=== PATIENT | female | born 1960 | race Caucasian/White ===

== ENCOUNTER 2017-07-03 09:29 | Inpatient (IN) | payer MEDICAID ==
[~2017-07-03] VITALS: Ht 162.6 cm; Wt 73.8 kg
[2017-07-03 10:06] LABS: BASOPHILS % (AUTO) 0.5 % (0-1); EOSINOPHILS # (AUTO) 0.1 X10'3 (0-0.9); EOSINOPHILS % (AUTO) 2.3 % (0-6); HEMATOCRIT 36.1 % (35.0-45.0); HEMOGLOBIN 11.6 g/dl (12.0-16.0); LYMPHOCYTES % (AUTO) 16.7 % (21-51); MEAN CORPUSCULAR HEMOGLOBIN 25.8 PG (27.0-31.0); MEAN CORPUSCULAR VOLUME 80.7 FL (78-98); MEAN PLATELET VOLUME 8.2 FL (7.4-10.4); MONOCYTES # (AUTO) 0.4 X10'3 (0-0.9); MONOCYTES % (AUTO) 5.8 % (2-12); NEUTROPHILS # (AUTO) 4.6 X10'3 (1.8-7.7); NEUTROPHILS % (AUTO) 74.7 % (42-75); PLATELET COUNT 240 X10'3 (140-440); RED BLOOD COUNT 4.48 X10'6 (4.20-5.60); RED CELL DISTRIBUTION WIDTH 20.6 % (11.5-14.5); WHITE BLOOD COUNT 6.2 X10'3 (4.5-11.0)
[2017-07-03 10:16] LABS: INR 1.2 INR; PROTHROMBIN TIME 12.7 SECONDS (9.0-12.0)
[2017-07-03] MEDS ORDERED: iohexol 350MG/ML 100ml bottle IV ONE ×2 (10:19→10:47)
[2017-07-03 10:24] LABS: ALANINE AMINOTRANSFERASE 18 U/L (12-78); ALBUMIN/GLOBULIN RATIO 0.6 (1.1-1.5); ALKALINE PHOSPHATASE 79 IU/L (46-116); ANION GAP 7 (8-16); ASPARTATE AMINO TRANSFERASE 13 U/L (10-37); BILIRUBIN,TOTAL 0.3 MG/DL (0.1-1.0); BLOOD UREA NITROGEN 30 MG/DL (7-18); BUN/CREATININE RATIO 34.1 (6.6-38.0); CALCIUM 7.9 MG/DL (8.5-10.1); CHLORIDE 104 MMOL/L (99-107); CREATININE 0.88 MG/DL (0.40-0.90); GLUCOSE 169 MG/DL (70-104); POTASSIUM 5.3 MMOL/L (3.5-5.1); SODIUM 139 MMOL/L (135-145); TOTAL CARBON DIOXIDE 28.2 MMOL/L (24-32); TOTAL PROTEIN 5.5 G/DL (6.4-8.2); eGFR 66 ML/MIN
[2017-07-03 10:27] LABS: TROPONIN I 0.55 NG/ML (0.0-0.05)
[2017-07-03] MEDS ORDERED: heparin 10,000 units/1 ML INJ IV ONE ×2 (11:20→11:25)
[2017-07-03] MEDS ORDERED: heparin 10,000 units/1 ML INJ IV PRN (11:25)
[2017-07-03] MEDS ORDERED: CARV-50 PO (11:39)
[2017-07-03] MEDS ORDERED: FURO-150 PO (11:39)
[2017-07-03] MEDS ORDERED: SPIR25TA3 PO (11:39)
[2017-07-03] MEDS ORDERED: MAGN400C PO (11:39)
[2017-07-03] MEDS ORDERED: LISI-600 PO (11:39)
[2017-07-03] MEDS ORDERED: METF500T PO (11:39)
[2017-07-03] MEDS ORDERED: OMEP40CA37 PO (11:39)
[2017-07-03 12:29] LABS: URINE AMPHETAMINE SCREEN POSITIVE (Neg); URINE BARBITUATE SCREEN NEGATIVE (Neg); URINE BENZODIAZEPINES SCREEN NEGATIVE (Neg); URINE CANNABINOID SCREEN NEGATIVE (Neg); URINE COCAINE SCREEN NEGATIVE (Neg); URINE METHADONE SCREEN NEGATIVE (Neg); URINE OPIATE SCREEN NEGATIVE (Neg); URINE PHENCYCLIDINE SCREEN NEGATIVE (Neg)
[2017-07-03 14:01] LABS: CLARITY,URINE CLOUDY (Clear); COLOR,URINE YELLOW (Yellow); GLUCOSE, URINE NEGATIVE (Neg); KETONES,URINE NEGATIVE (Neg); LEUKOCYTE ESTERASE ,URINE SMALL (Neg); NITRITES, URINE POSITIVE (Neg); OCCULT BLOOD,URINE SMALL (Neg); PH,URINE 5.5 (4.8-8.0); PROTEIN,URINE 100 mg/dl (Neg)
[2017-07-03 14:02] LABS: UA COLLECTION TYPE FOLEY CATH
[2017-07-03 14:06] LABS: SQUAMOUS EPITHELIAL CELL,UR FEW /LPF (FEW)
[2017-07-03 14:07] LABS: BACTERIA,URINE 2+ /HPF (Neg)
[2017-07-03 14:08] LABS: RBC,URINE 0-2 /HPF (0-2); WBC,URINE 30-50 /HPF (0-4)
[2017-07-03] MEDS ORDERED: magnesium Cl slow-release 64mg tablet PO PRN (15:00)
[2017-07-03] MEDS ORDERED: potassium Cl 40MEQ/NS 500ml 500 ML IV PRN ×2 (15:00)
[2017-07-03] MEDS ORDERED: magnesium 2GM in 50ml NS 50 ML IV PRN (15:00)
[2017-07-03] MEDS ORDERED: magnesium 4gm in 100ml NS 100 ML IV PRN (15:00)
[2017-07-03] MEDS ORDERED: mag hydrox/Alum hydrox/simeth 30ml oral suspension PO PRN (15:00)
[2017-07-03] MEDS ORDERED: potassium Cl 20 mEq SR tablet PO PRN ×2 (15:00)
[2017-07-03] MEDS ORDERED: magnesium hydroxide 30ml (MOM) UD suspension PO PRN (15:00)
[2017-07-03] MEDS ORDERED: acetaminophen 325mg tablet PO PRN (15:00)
[2017-07-03] MEDS ORDERED: ondansetron/PF 4mg/2ml inj IV PRN (15:00)
[2017-07-03] MEDS ORDERED: MESSAGE TO PHARMACY PO ONE (15:15)
[2017-07-03] MEDS ORDERED: dextrose ORAL solution 15 GM/59 ML bottle PO PRN ×2 (15:15)
[2017-07-03] MEDS ORDERED: insulin Lispro (HumaLOG) vial - multi-dose SQ SCH (15:15)
[2017-07-03] MEDS ORDERED: glucagon, human recombinant 1mg kit SUBCUT PRN (15:15)
[2017-07-03] MEDS ORDERED: dextrose 50%-water 50ml dispensing syringe IV PRN ×2 (15:15)
[2017-07-03] MEDS ORDERED: sodium polystyrene sulfonate 15gm/60ml oral suspension PO ONE (16:15)
[2017-07-03 16:25] VITALS: BP 113/79
[2017-07-03 17:15] LABS: TROPONIN I 0.44 NG/ML (0.0-0.05)
[2017-07-03 18:00] VITALS: BP 113/79
[2017-07-03] MEDS: magnesium oxide 400mg tablet PO SCH (19:26)
[2017-07-03] MEDS: furosemide 40mg/4ml inj IV SCH (19:27)
[2017-07-03] MEDS: carVEDilol 12.5mg tablet PO SCH (20:00)
[2017-07-03] MEDS: insulin glargine (Lantus) pen - multi-dose SQ SCH (21:00)
[2017-07-03 22:00] VITALS: BP 102/64
[2017-07-04] VITALS (7 sets, daily range): BP systolic 102–120; BP diastolic 61–89
[2017-07-04 06:26] LABS: BASOPHILS % (AUTO) 0.6 % (0-1); EOSINOPHILS # (AUTO) 0.1 X10'3 (0-0.9); EOSINOPHILS % (AUTO) 1.1 % (0-6); HEMOGLOBIN 11.7 g/dl (12.0-16.0); LYMPHOCYTES # (AUTO) 1.1 X10'3 (1.1-4.8); LYMPHOCYTES % (AUTO) 17.6 % (21-51); MEAN CORPUSCULAR HEMOGLOBIN 25.7 PG (27.0-31.0); MEAN CORPUSCULAR HGB CONC 31.6 % (33.0-36.5); MEAN CORPUSCULAR VOLUME 81.3 FL (78-98); MEAN PLATELET VOLUME 8.6 FL (7.4-10.4); MONOCYTES # (AUTO) 0.5 X10'3 (0-0.9); MONOCYTES % (AUTO) 7.5 % (2-12); NEUTROPHILS # (AUTO) 4.5 X10'3 (1.8-7.7); NEUTROPHILS % (AUTO) 73.2 % (42-75); PLATELET COUNT 229 X10'3 (140-440); RED BLOOD COUNT 4.55 X10'6 (4.20-5.60); RED CELL DISTRIBUTION WIDTH 21.7 % (11.5-14.5); WHITE BLOOD COUNT 6.2 X10'3 (4.5-11.0)
[2017-07-04 06:49] LABS: ANION GAP 9 (8-16); BLOOD UREA NITROGEN 29 MG/DL (7-18); BUN/CREATININE RATIO 33.7 (6.6-38.0); CHLORIDE 102 MMOL/L (99-107); CHOL/HDL RATIO 3.5 (0.00-4.99); CHOLESTEROL 114 MG/DL (0-200); CREATININE 0.86 MG/DL (0.40-0.90); GLUCOSE 121 MG/DL (70-104); HDL CHOLESTEROL 33 MG/DL (35-60); LDL CHOLESTEROL 59 MG/DL (50-100); POTASSIUM 4.6 MMOL/L (3.5-5.1); SODIUM 139 MMOL/L (135-145); TRIGLYCERIDES 140 MG/DL (20-135); eGFR 68 ML/MIN
[2017-07-04 06:52] LABS: MAGNESIUM 0.9 MG/DL (1.5-2.4)
[2017-07-04] MEDS: K and/or MAG REPLACEMENT MC SCH (07:41)
[2017-07-04 07:50] LABS: PLATELET ESTIMATE NORMAL
[2017-07-04] MEDS: spironolactone 25 MG tablet PO SCH (07:50)
[2017-07-04] MEDS: pantoprazole 40mg Tablet.DR PO SCH (07:50)
[2017-07-04] MEDS: furosemide 40mg/4ml inj IV SCH ×2 (07:50→19:57)
[2017-07-04 07:51] LABS: ANISOCYTOSIS 3+; BURR CELLS 1+; ELLIPTOCYTES FEW
[2017-07-04] MEDS: magnesium oxide 400mg tablet PO SCH ×2 (07:51→19:57)
[2017-07-04] MEDS: carVEDilol 12.5mg tablet PO SCH ×2 (07:51→19:57)
[2017-07-04] MEDS: lisinopril 10 MG tablet PO SCH (07:51)
[2017-07-04] MEDS: enoxaparin 40mg/0.4ml syringe SUBCUT SCH (07:52)
[2017-07-04] MEDS: aspirin 81mg tab.chew PO SCH (17:07)
[2017-07-04] MEDS ORDERED: atorvastatin 20mg tablet PO SCH (21:00)
[2017-07-04] MEDS: insulin glargine (Lantus) pen - multi-dose SQ SCH (21:00)
[2017-07-04] MEDS ORDERED: atorvastatin 20mg tablet PO ONE (22:10)
[2017-07-05 03:00] VITALS: BP 97/64
[2017-07-05 06:17] LABS: BASOPHILS % (AUTO) 0.5 % (0-1); EOSINOPHILS # (AUTO) 0.1 X10'3 (0-0.9); EOSINOPHILS % (AUTO) 1.6 % (0-6); HEMATOCRIT 34.3 % (35.0-45.0); LYMPHOCYTES % (AUTO) 17.1 % (21-51); MEAN CORPUSCULAR HEMOGLOBIN 25.5 PG (27.0-31.0); MEAN CORPUSCULAR HGB CONC 32.2 % (33.0-36.5); MEAN CORPUSCULAR VOLUME 79.4 FL (78-98); MEAN PLATELET VOLUME 8.1 FL (7.4-10.4); MONOCYTES # (AUTO) 0.5 X10'3 (0-0.9); MONOCYTES % (AUTO) 7.8 % (2-12); NEUTROPHILS # (AUTO) 4.3 X10'3 (1.8-7.7); PLATELET COUNT 207 X10'3 (140-440); RED BLOOD COUNT 4.32 X10'6 (4.20-5.60); RED CELL DISTRIBUTION WIDTH 21.2 % (11.5-14.5); WHITE BLOOD COUNT 5.9 X10'3 (4.5-11.0)
[2017-07-05 06:27] LABS: ALBUMIN 1.9 G/DL (3.4-5.0); ANION GAP 6 (8-16); BLOOD UREA NITROGEN 29 MG/DL (7-18); BUN/CREATININE RATIO 30.9 (6.6-38.0); CALCIUM 8.3 MG/DL (8.5-10.1); CHLORIDE 102 MMOL/L (99-107); CREATININE 0.94 MG/DL (0.40-0.90); GLUCOSE 164 MG/DL (70-104); MAGNESIUM 1.7 MG/DL (1.5-2.4); SODIUM 138 MMOL/L (135-145); TOTAL CARBON DIOXIDE 30.4 MMOL/L (24-32); eGFR 62 ML/MIN
[2017-07-05] MEDS: K and/or MAG REPLACEMENT MC SCH (06:52)
[2017-07-05 08:39] VITALS: BP 116/81
[2017-07-05] MEDS: furosemide 40mg/4ml inj IV SCH (08:41)
[2017-07-05] MEDS: magnesium oxide 400mg tablet PO SCH (08:41)
[2017-07-05] MEDS: pantoprazole 40mg Tablet.DR PO SCH (08:41)
[2017-07-05] MEDS: aspirin 81mg tab.chew PO SCH (08:41)
[2017-07-05] MEDS: spironolactone 25 MG tablet PO SCH (08:41)
[2017-07-05] MEDS: enoxaparin 40mg/0.4ml syringe SUBCUT SCH (08:41)
[2017-07-05] MEDS: carVEDilol 12.5mg tablet PO SCH (08:41)
[2017-07-05] MEDS: lisinopril 10 MG tablet PO SCH (08:41)
[2017-07-05 10:00] VITALS: BP 120/88
[2017-07-05] MEDS ORDERED: LISI10TA4 PO (17:40)
[2017-07-05] MEDS ORDERED: FURO40TA4 PO (17:40)
[2017-07-05] MEDS ORDERED: ASPI81TA52 PO (17:40)
[2017-07-05] MEDS ORDERED: NICO-630 TOP (17:43)
== END 2017-07-05 17:55 | disposition home or self-care (01) | DRG 194 ==
LOC: ER 09:29 → ORTHO 4S 16:29 → CMPBEDREQ 19:34
PROVIDERS: ADMIT Internal Medicine; ATTEND Internal Medicine
PROC: B3251ZZ Computerized Tomography (CT Scan) of Bilateral Common Carotid Arteries using Low Osmolar Contrast (ICD-10-PCS; principal; 2017-07-03)
PROC: B32G1ZZ Computerized Tomography (CT Scan) of Bilateral Vertebral Arteries using Low Osmolar Contrast (ICD-10-PCS; 2017-07-03)
PROC: B3201ZZ Computerized Tomography (CT Scan) of Thoracic Aorta using Low Osmolar Contrast (ICD-10-PCS; 2017-07-03)
PROC: B3281ZZ Computerized Tomography (CT Scan) of Bilateral Internal Carotid Arteries using Low Osmolar Contrast (ICD-10-PCS; 2017-07-03)
DX: I50.23 Acute on chronic systolic (congestive) heart failure (principal); I63.9 Cerebral infarction, unspecified; I21.4 Non-ST elevation (NSTEMI) myocardial infarction; E87.5 Hyperkalemia; F15.90 Other stimulant use, unspecified, uncomplicated; F17.200 Nicotine dependence, unspecified, uncomplicated; J44.9 Chronic obstructive pulmonary disease, unspecified; R47.01 Aphasia; E11.9 Type 2 diabetes mellitus without complications; E86.0 Dehydration; Z88.6 Allergy status to analgesic agent; Z88.8 Allergy status to other drugs, medicaments and biological substances; Z79.899 Other long term (current) drug therapy; Z79.01 Long term (current) use of anticoagulants; Z79.82 Long term (current) use of aspirin; Z79.84 Long term (current) use of oral hypoglycemic drugs; Z95.810 Presence of automatic (implantable) cardiac defibrillator; Z82.49 Family history of ischemic heart disease and other diseases of the circulatory system; Z80.9 Family history of malignant neoplasm, unspecified; Z83.3 Family history of diabetes mellitus; Z71.6 Tobacco abuse counseling
CPT/HCPCS: 36415; 70450; 70496; 70498; 71045; 80048; 80053; 80061; 80305; 80320; 81001; 82140; 82948; 83036; 83735; 83880; 84484; 85025; 85610; 85730; 87070; 87077; 87088; 87186; 93005; 93306; 96365; 96366; 97110; 97116; 97161; 97530; 99291; 99292; A4315; J1644; J1650; J1815; J1940; J3475; J7030; Q9967

== ENCOUNTER 2017-10-04 20:28 | Inpatient (IN) | payer MEDICAID ==
[~2017-10-04] VITALS: Ht 162.6 cm; Wt 65.0 kg
[~2017-10-04 20:28] MED LIST: ASPI81TA52 PO; CARV-50 PO; LISI10TA4 PO; MAGN400C PO; METF500T PO; OMEP40CA37 PO; SPIR25TA5 PO
[2017-10-04 23:19] LABS: BASOPHILS % (AUTO) 0.1 % (0-1); EOSINOPHILS # (AUTO) 0.1 X10'3 (0-0.9); EOSINOPHILS % (AUTO) 1.6 % (0-6); HEMATOCRIT 41.5 % (35.0-45.0); HEMOGLOBIN 13.3 g/dl (12.0-16.0); LYMPHOCYTES # (AUTO) 0.5 X10'3 (1.1-4.8); LYMPHOCYTES % (AUTO) 6.1 % (21-51); MEAN CORPUSCULAR HEMOGLOBIN 29.2 PG (27.0-31.0); MEAN PLATELET VOLUME 8.9 FL (7.4-10.4); MONOCYTES # (AUTO) 0.4 X10'3 (0-0.9); MONOCYTES % (AUTO) 4.9 % (2-12); NEUTROPHILS # (AUTO) 6.7 X10'3 (1.8-7.7); NEUTROPHILS % (AUTO) 87.3 % (42-75); PLATELET COUNT 242 X10'3 (140-440); RED BLOOD COUNT 4.56 X10'6 (4.20-5.60); RED CELL DISTRIBUTION WIDTH 33.5 % (11.5-14.5); WHITE BLOOD COUNT 7.7 X10'3 (4.5-11.0)
[2017-10-04 23:22] LABS: INR 1.7 INR; PARTIAL THROMBOPLASTIN TIME 30 SECONDS (22-32); PROTHROMBIN TIME 17.3 SECONDS (9.0-12.0)
[2017-10-04 23:57] LABS: ALANINE AMINOTRANSFERASE 14 U/L (12-78); ALBUMIN 2.5 G/DL (3.4-5.0); ALBUMIN/GLOBULIN RATIO 0.6 (1.1-1.5); ALKALINE PHOSPHATASE 98 IU/L (46-116); ANION GAP 23 (8-16); ASPARTATE AMINO TRANSFERASE 21 U/L (10-37); BILIRUBIN,TOTAL 0.7 MG/DL (0.1-1.0); BLOOD UREA NITROGEN 46 MG/DL (7-18); BUN/CREATININE RATIO 12.6 (6.6-38.0); CALCIUM 8.2 MG/DL (8.5-10.1); CHLORIDE 95 MMOL/L (99-107); CREATININE 3.66 MG/DL (0.40-0.90); ETHANOL < 0.010 GM/DL (0.0-0.010); GLUCOSE 61 MG/DL (70-104); MAGNESIUM 1.5 MG/DL (1.5-2.4); SODIUM 136 MMOL/L (135-145); TOTAL CARBON DIOXIDE 18.2 MMOL/L (24-32); TOTAL PROTEIN 6.5 G/DL (6.4-8.2); eGFR 13 ML/MIN
[2017-10-05 00:09] LABS: POTASSIUM 6.1 MMOL/L (3.5-5.1)
[2017-10-05] MEDS ORDERED: piperacillin/tazo 3.375gm/50ml 50 ML IV STA (00:33)
[2017-10-05] MEDS ORDERED: vancomycin inj 1,000 MG in normal saline 250ml IV soln 250 ML IV STA (00:33)
[2017-10-05] MEDS ORDERED: normal saline 1000ML IV soln IV ONE (00:35)
[2017-10-05 01:08] LABS: ANISOCYTOSIS 3+; PLATELET ESTIMATE NORMAL
[2017-10-05 01:10] LABS: BURR CELLS 1+; POLYCHROMASIA FEW; SCHISTOCYTES 1+; TARGET CELLS 1+
[2017-10-05 01:59] LABS: ALBUMIN 2.2 G/DL (3.4-5.0); ANION GAP 21 (8-16); BLOOD UREA NITROGEN 45 MG/DL (7-18); BUN/CREATININE RATIO 12.9 (6.6-38.0); CHLORIDE 99 MMOL/L (99-107); CREATININE 3.48 MG/DL (0.40-0.90); GLUCOSE 56 MG/DL (70-104); POTASSIUM 5.6 MMOL/L (3.5-5.1); SODIUM 137 MMOL/L (135-145); TOTAL CARBON DIOXIDE 16.7 MMOL/L (24-32); eGFR 14 ML/MIN
[2017-10-05] MEDS ORDERED: normal saline 1000ml 1,000 ML IV SCH (02:42)
[2017-10-05] MEDS ORDERED: mag hydrox/Alum hydrox/simeth 30ml oral suspension PO PRN (02:45)
[2017-10-05] MEDS ORDERED: ondansetron/PF 4mg/2ml inj IV PRN (02:45)
[2017-10-05] MEDS ORDERED: HYDROmorphone inj. 0.5 MG/0.5 ML DISP.SYRIN IV PRN (02:45)
[2017-10-05] MEDS ORDERED: acetaminophen 325mg tablet PO PRN (02:45)
[2017-10-05] MEDS ORDERED: magnesium hydroxide 30ml (MOM) UD suspension PO PRN (02:45)
[2017-10-05 02:46] LABS: ABG BASE EXCESS -9.9 mmol/L (-2.0-3.0); ABG HCO3 12.9 mmol/L (22.0-26.0); ABG OXYGEN SATURATION 97.5 % (95-98); ABG PCO2 (T) 20.5 mmHg (32.0-45.0); ABG PH (T) 7.413 (7.350-7.450); ABG PO2 (T) 103.1 mmHg (83-108); FMetHb 0.1 % (0.3-1.12); FO2Hb 96.4 % (94-100); PATIENT TEMPERATURE 36.2; RESPIRATORY RATE (OBSERVED) 20 b/min
[2017-10-05 04:00] VITALS: BP 101/75
[2017-10-05] MEDS ORDERED: dextrose ORAL solution 15 GM/59 ML bottle PO PRN ×2 (04:20)
[2017-10-05] MEDS ORDERED: MESSAGE TO PHARMACY PO ONE (04:20)
[2017-10-05] MEDS ORDERED: dextrose 50%-water 50ml dispensing syringe IV PRN (04:20)
[2017-10-05] MEDS ORDERED: glucagon, human recombinant 1mg kit SUBCUT PRN (04:20)
[2017-10-05] MEDS ORDERED: insulin Lispro (HumaLOG) vial - multi-dose SQ SCH (04:20)
[2017-10-05 07:07] VITALS: BP 93/68
[2017-10-05] MEDS: pantoprazole 40mg Tablet.DR PO SCH (07:30)
[2017-10-05] MEDS: carVEDilol 12.5mg tablet PO SCH ×2 (08:00→19:38)
[2017-10-05] MEDS: aspirin 81mg tablet.DR PO SCH (08:47)
[2017-10-05] MEDS: lactobacillus rhamnosus 10,000 MMU CELLS/CAPSULE PO SCH ×2 (08:47→19:32)
[2017-10-05] MEDS: heparin, porcine 5000 units/ml vial SQ SCH ×2 (08:48→19:34)
[2017-10-05] MEDS: piperacillin-tazo 2.25gm/50ml 50 ML IV SCH ×2 (10:49→16:00)
[2017-10-05 11:08] LABS: HEMOGLOBIN A1C 6.2 % (4.5-6.2)
[2017-10-05 11:32] VITALS: BP 93/60
[2017-10-05] MEDS: dextrose 50%-water 50ml dispensing syringe IV PRN ×2 (12:14→20:43)
[2017-10-05] MEDS ORDERED: HYDROmorphone 1 mg/ml syringe IV PRN (15:42)
[2017-10-05 16:30] VITALS: BP 99/67
[2017-10-05 18:30] VITALS: BP 99/67
[2017-10-05] MEDS: insulin glargine (Lantus) pen - multi-dose SQ SCH (21:00)
[2017-10-05 22:00] VITALS: BP 116/78
[2017-10-06] VITALS (19 sets, daily range): BP systolic 77–110; BP diastolic 45–68
[2017-10-06] MEDS: piperacillin-tazo 2.25gm/50ml 50 ML IV SCH ×3 (00:08→16:25)
[2017-10-06 01:47] LABS: CLARITY,URINE CLOUDY (Clear); COLOR,URINE YELLOW (Yellow); GLUCOSE, URINE NEGATIVE (Neg); KETONES,URINE NEGATIVE (Neg); LEUKOCYTE ESTERASE ,URINE LARGE (Neg); NITRITES, URINE NEGATIVE (Neg); OCCULT BLOOD,URINE SMALL (Neg); PROTEIN,URINE >=300 mg/dl (Neg); UROBILINOGEN,URINE 0.2 E.U/dL (0.2-1.0)
[2017-10-06 01:53] LABS: URINE AMPHETAMINE SCREEN POSITIVE (Neg); URINE BARBITUATE SCREEN NEGATIVE (Neg); URINE BENZODIAZEPINES SCREEN NEGATIVE (Neg); URINE CANNABINOID SCREEN NEGATIVE (Neg); URINE COCAINE SCREEN NEGATIVE (Neg); URINE METHADONE SCREEN NEGATIVE (Neg); URINE OPIATE SCREEN NEGATIVE (Neg); URINE PHENCYCLIDINE SCREEN NEGATIVE (Neg)
[2017-10-06] MEDS ORDERED: vancomycin/NS 1 GM ADD-VANTAGE 250 ML IV SCH (02:00)
[2017-10-06 02:01] LABS: BACTERIA,URINE 3+ /HPF (Neg); SQUAMOUS EPITHELIAL CELL,UR MODERATE /LPF (FEW); UA COLLECTION TYPE CLN CATCH MIDSTREAM; WBC,URINE 30-50 /HPF (0-4)
[2017-10-06] MEDS: dextrose 5%-1/2 normal saline 1,000 ML IV SCH ×2 (03:46→20:53)
[2017-10-06 06:12] LABS: BASOPHILS % (AUTO) 0.2 % (0-1); EOSINOPHILS # (AUTO) 0.1 X10'3 (0-0.9); EOSINOPHILS % (AUTO) 1.6 % (0-6); HEMATOCRIT 38.1 % (35.0-45.0); HEMOGLOBIN 12.1 g/dl (12.0-16.0); LYMPHOCYTES # (AUTO) 0.4 X10'3 (1.1-4.8); LYMPHOCYTES % (AUTO) 4.8 % (21-51); MEAN CORPUSCULAR HEMOGLOBIN 29.2 PG (27.0-31.0); MEAN CORPUSCULAR HGB CONC 31.9 % (33.0-36.5); MEAN CORPUSCULAR VOLUME 91.6 FL (78-98); MONOCYTES # (AUTO) 0.4 X10'3 (0-0.9); MONOCYTES % (AUTO) 5.1 % (2-12); NEUTROPHILS # (AUTO) 7.1 X10'3 (1.8-7.7); NEUTROPHILS % (AUTO) 88.3 % (42-75); PLATELET COUNT 205 X10'3 (140-440); RED BLOOD COUNT 4.16 X10'6 (4.20-5.60); RED CELL DISTRIBUTION WIDTH 33.8 % (11.5-14.5)
[2017-10-06 06:53] LABS: ALANINE AMINOTRANSFERASE 13 U/L (12-78); ALBUMIN 2.2 G/DL (3.4-5.0); ALBUMIN/GLOBULIN RATIO 0.6 (1.1-1.5); ALKALINE PHOSPHATASE 80 IU/L (46-116); ANION GAP 22 (8-16); BILIRUBIN,TOTAL 0.7 MG/DL (0.1-1.0); BLOOD UREA NITROGEN 45 MG/DL (7-18); BUN/CREATININE RATIO 12.1 (6.6-38.0); CALCIUM 8.1 MG/DL (8.5-10.1); CHLORIDE 97 MMOL/L (99-107); CREATININE 3.71 MG/DL (0.40-0.90); GLUCOSE 90 MG/DL (70-104); SODIUM 136 MMOL/L (135-145); TOTAL CARBON DIOXIDE 17.4 MMOL/L (24-32); TOTAL PROTEIN 5.7 G/DL (6.4-8.2); eGFR 13 ML/MIN
[2017-10-06 06:58] LABS: POTASSIUM 5.9 MMOL/L (3.5-5.1)
[2017-10-06 07:48] LABS: ASPARTATE AMINO TRANSFERASE 25 U/L (10-37)
[2017-10-06] MEDS: aspirin 81mg tablet.DR PO SCH (08:32)
[2017-10-06] MEDS: heparin, porcine 5000 units/ml vial SQ SCH ×2 (08:32→22:30)
[2017-10-06] MEDS: lactobacillus rhamnosus 10,000 MMU CELLS/CAPSULE PO SCH ×2 (08:32→20:00)
[2017-10-06] MEDS: carVEDilol 12.5mg tablet PO SCH ×2 (08:32→20:00)
[2017-10-06] MEDS: pantoprazole 40mg Tablet.DR PO SCH (08:33)
[2017-10-06] MEDS ORDERED: normal saline 500ml IV soln 1,000 ML IV ONE ×2 (11:35→13:40)
[2017-10-06] MEDS ORDERED: vancomycin/NS 1 GM ADD-VANTAGE 250 ML IV PRN (15:20)
[2017-10-06] MEDS ORDERED: NORMAL SALINE IV ONE (16:25)
[2017-10-06] MEDS ORDERED: ceFAZolin 1000mg inj ONE (17:09)
[2017-10-06] MEDS ORDERED: bacitracin 15gm ointment TP ONE (17:09)
[2017-10-06] MEDS ORDERED: fentaNYL/PF 50MCG/1 ML 2ML syringe ONE (18:20)
[2017-10-06] MEDS ORDERED: midazolam 2 mg/2 ml injection ONE (18:20)
[2017-10-06] MEDS ORDERED: ketamine 10mg/ml 20ml inj ONE (18:26)
[2017-10-06] MEDS ORDERED: LIDOcaine 1% 30ml preserv. free vial ONE (18:27)
[2017-10-06 18:45] LABS: ISTAT CREATININE 3.6 mg/dL (0.6-1.1); ISTAT HGB 12.6 g/dl (12.0-16.0); ISTAT IONIZED CALCIUM 1.03 mmol/L (1.03-1.32); ISTAT K 5.6 mmol/L (3.5-5.1); POC BUN/CREATININE RATIO 12.8 (6.6-38.0)
[2017-10-06] MEDS: insulin glargine (Lantus) pen - multi-dose SQ SCH (21:00)
[2017-10-07] MEDS: piperacillin-tazo 2.25gm/50ml 50 ML IV SCH ×3 (00:24→16:27)
[2017-10-07 02:00] VITALS: BP 83/56
[2017-10-07] MEDS: VANCOMYCIN LEVEL IV SCH (03:00)
[2017-10-07 06:00] VITALS: BP 83/56
[2017-10-07 06:41] LABS: BASOPHILS % (AUTO) 0.2 % (0-1); EOSINOPHILS % (AUTO) 0.7 % (0-6); HEMATOCRIT 36.5 % (35.0-45.0); HEMOGLOBIN 11.6 g/dl (12.0-16.0); LYMPHOCYTES # (AUTO) 0.3 X10'3 (1.1-4.8); MEAN CORPUSCULAR HEMOGLOBIN 29.1 PG (27.0-31.0); MEAN CORPUSCULAR HGB CONC 31.8 % (33.0-36.5); MEAN CORPUSCULAR VOLUME 91.3 FL (78-98); MEAN PLATELET VOLUME 9.6 FL (7.4-10.4); MONOCYTES # (AUTO) 0.4 X10'3 (0-0.9); MONOCYTES % (AUTO) 5.9 % (2-12); NEUTROPHILS # (AUTO) 5.8 X10'3 (1.8-7.7); NEUTROPHILS % (AUTO) 89.2 % (42-75); PLATELET COUNT 155 X10'3 (140-440); RED BLOOD COUNT 3.99 X10'6 (4.20-5.60); RED CELL DISTRIBUTION WIDTH 33.6 % (11.5-14.5); WHITE BLOOD COUNT 6.5 X10'3 (4.5-11.0)
[2017-10-07 07:05] LABS: ALANINE AMINOTRANSFERASE 11 U/L (12-78); ALBUMIN 1.7 G/DL (3.4-5.0); ALBUMIN/GLOBULIN RATIO 0.5 (1.1-1.5); ALKALINE PHOSPHATASE 63 IU/L (46-116); ANION GAP 21 (8-16); ASPARTATE AMINO TRANSFERASE 22 U/L (10-37); BILIRUBIN,TOTAL 0.5 MG/DL (0.1-1.0); BLOOD UREA NITROGEN 47 MG/DL (7-18); BUN/CREATININE RATIO 12.2 (6.6-38.0); CALCIUM 7.7 MG/DL (8.5-10.1); CHLORIDE 100 MMOL/L (99-107); CREATININE 3.84 MG/DL (0.40-0.90); GLUCOSE 140 MG/DL (70-104); POTASSIUM 5.4 MMOL/L (3.5-5.1); SODIUM 137 MMOL/L (135-145); TOTAL CARBON DIOXIDE 16.5 MMOL/L (24-32); TOTAL PROTEIN 4.8 G/DL (6.4-8.2); VANCOMYCIN,RANDOM 19.4 UG/ML; eGFR 12 ML/MIN
[2017-10-07 07:09] LABS: PLATELET ESTIMATE NORMAL
[2017-10-07 07:11] LABS: ACANTHOCYTES 1+; ANISOCYTOSIS 3+; BURR CELLS 2+; POLYCHROMASIA 1+; SCHISTOCYTES FEW; TARGET CELLS FEW
[2017-10-07] MEDS: pantoprazole 40mg Tablet.DR PO SCH (07:57)
[2017-10-07] MEDS: heparin, porcine 5000 units/ml vial SQ SCH ×2 (07:58→21:20)
[2017-10-07] MEDS: lactobacillus rhamnosus 10,000 MMU CELLS/CAPSULE PO SCH ×2 (07:58→21:20)
[2017-10-07] MEDS: aspirin 81mg tablet.DR PO SCH (07:58)
[2017-10-07] MEDS: carVEDilol 12.5mg tablet PO SCH ×2 (08:00→20:00)
[2017-10-07 10:00] VITALS: BP 87/54
[2017-10-07] MEDS: dextrose 5%-1/2 normal saline 1,000 ML IV SCH (12:12)
[2017-10-07] MEDS: lactulose 20gm/30ml cup PO ONE ×2 (15:10→16:27)
[2017-10-07 18:00] VITALS: BP 89/68
[2017-10-07] MEDS ORDERED: sodium polystyrene sulfonate 15gm/60ml oral suspension PO ONE (19:30)
[2017-10-07] MEDS: insulin glargine (Lantus) pen - multi-dose SQ SCH (21:00)
[2017-10-07 22:00] VITALS: BP 88/59
[2017-10-08] VITALS (12 sets, daily range): BP systolic 77–100; BP diastolic 50–79
[2017-10-08] MEDS: piperacillin-tazo 2.25gm/50ml 50 ML IV SCH ×3 (00:12→17:42)
[2017-10-08] MEDS ORDERED: VANCOMYCIN LEVEL IV ONE (01:30)
[2017-10-08] MEDS: dextrose 5%-1/2 normal saline 1,000 ML IV SCH (02:15)
[2017-10-08] MEDS: VANCOMYCIN LEVEL IV SCH (03:00)
[2017-10-08 04:51] LABS: ALANINE AMINOTRANSFERASE 12 U/L (12-78); ALBUMIN 1.8 G/DL (3.4-5.0); ALBUMIN/GLOBULIN RATIO 0.6 (1.1-1.5); ALKALINE PHOSPHATASE 68 IU/L (46-116); ANION GAP 17 (8-16); ASPARTATE AMINO TRANSFERASE 18 U/L (10-37); BILIRUBIN,TOTAL 0.5 MG/DL (0.1-1.0); BLOOD UREA NITROGEN 50 MG/DL (7-18); BUN/CREATININE RATIO 12.7 (6.6-38.0); CALCIUM 7.4 MG/DL (8.5-10.1); CHLORIDE 98 MMOL/L (99-107); CREATININE 3.94 MG/DL (0.40-0.90); GLUCOSE 149 MG/DL (70-104); POTASSIUM 4.9 MMOL/L (3.5-5.1); SODIUM 134 MMOL/L (135-145); TOTAL CARBON DIOXIDE 18.6 MMOL/L (24-32); VANCOMYCIN,RANDOM 19.3 UG/ML; eGFR 12 ML/MIN
[2017-10-08 06:34] LABS: BASOPHILS % (AUTO) 0.1 % (0-1); EOSINOPHILS # (AUTO) 0.1 X10'3 (0-0.9); EOSINOPHILS % (AUTO) 1.4 % (0-6); HEMATOCRIT 37.4 % (35.0-45.0); LYMPHOCYTES # (AUTO) 0.3 X10'3 (1.1-4.8); LYMPHOCYTES % (AUTO) 3.8 % (21-51); MEAN CORPUSCULAR VOLUME 90.4 FL (78-98); MEAN PLATELET VOLUME 9.1 FL (7.4-10.4); MONOCYTES # (AUTO) 0.4 X10'3 (0-0.9); NEUTROPHILS # (AUTO) 6.6 X10'3 (1.8-7.7); NEUTROPHILS % (AUTO) 89.7 % (42-75); PLATELET COUNT 162 X10'3 (140-440); RED BLOOD COUNT 4.13 X10'6 (4.20-5.60); RED CELL DISTRIBUTION WIDTH 33.4 % (11.5-14.5); WHITE BLOOD COUNT 7.3 X10'3 (4.5-11.0)
[2017-10-08 07:28] LABS: LARGE PLATELETS FEW; PLATELET ESTIMATE NORMAL
[2017-10-08 07:29] LABS: ANISOCYTOSIS 3+; POIKILOCYTOSIS FEW; POLYCHROMASIA FEW; TARGET CELLS FEW
[2017-10-08] MEDS: carVEDilol 12.5mg tablet PO SCH ×2 (08:00→20:00)
[2017-10-08] MEDS: lactobacillus rhamnosus 10,000 MMU CELLS/CAPSULE PO SCH ×2 (09:55→20:18)
[2017-10-08] MEDS: aspirin 81mg tablet.DR PO SCH (09:55)
[2017-10-08] MEDS: pantoprazole 40mg Tablet.DR PO SCH (09:56)
[2017-10-08] MEDS: heparin, porcine 5000 units/ml vial SQ SCH (09:56)
[2017-10-08] MEDS: sodium bicarbonate (8.4%) inj. 50 MEQ in normal saline 1000ml 1,000 ML IV SCH ×2 (11:30→14:37)
[2017-10-08] MEDS ORDERED: potassium Cl 40MEQ/NS 500ml 500 ML IV PRN ×2 (16:10)
[2017-10-08] MEDS ORDERED: sodium phosphate inj. 15 MMOL in dextrose 5%-water 150 ML IV PRN (16:10)
[2017-10-08] MEDS: K, MAG and/or Phos replacement - Verify level? MC SCH (16:10)
[2017-10-08] MEDS ORDERED: Neutra Phos packet PO PRN (16:10)
[2017-10-08] MEDS ORDERED: magnesium 4gm in 100ml NS 100 ML IV PRN (16:10)
[2017-10-08] MEDS ORDERED: magnesium 2GM in 50ml NS 50 ML IV PRN (16:10)
[2017-10-08] MEDS ORDERED: sodium phosphate inj. 30 MMOL in dextrose 5%-water 250 ML IV PRN (16:10)
[2017-10-08 17:17] LABS: INR 1.4 INR; PARTIAL THROMBOPLASTIN TIME 34 SECONDS (22-32); PROTHROMBIN TIME 14.7 SECONDS (9.0-12.0)
[2017-10-08 19:06] LABS: ABG HCO3 16.2 mmol/L (22.0-26.0); ABG OXYGEN SATURATION 94.7 % (95-98); ABG PCO2 (T) 25.9 mmHg (32.0-45.0); ABG PH (T) 7.412 (7.350-7.450); ALLEN'S TEST Positive; FCOHb 0.4 % (0.5-1.5); FLOW 4 L/min; FMetHb 0.2 % (0.3-1.12); FO2Hb 94.1 % (94-100); PATIENT TEMPERATURE 36.4; RESPIRATORY RATE (OBSERVED) 18 b/min; TOTAL HEMOGLOBIN 12.9 G/dl (12.0-16.0)
[2017-10-08] MEDS: insulin glargine (Lantus) pen - multi-dose SQ SCH (21:00)
[2017-10-09] VITALS (12 sets, daily range): BP systolic 81–108; BP diastolic 65–82
[2017-10-09] MEDS: piperacillin-tazo 2.25gm/50ml 50 ML IV SCH ×2 (00:43→07:13)
[2017-10-09] MEDS: VANCOMYCIN LEVEL IV SCH (03:00)
[2017-10-09 03:55] LABS: BASOPHILS % (AUTO) 0.2 % (0-1); EOSINOPHILS % (AUTO) 0.4 % (0-6); HEMATOCRIT 34.4 % (35.0-45.0); HEMOGLOBIN 11.2 g/dl (12.0-16.0); LYMPHOCYTES # (AUTO) 0.2 X10'3 (1.1-4.8); MEAN CORPUSCULAR HEMOGLOBIN 29.2 PG (27.0-31.0); MEAN CORPUSCULAR HGB CONC 32.6 % (33.0-36.5); MEAN CORPUSCULAR VOLUME 89.6 FL (78-98); MEAN PLATELET VOLUME 8.7 FL (7.4-10.4); MONOCYTES # (AUTO) 0.3 X10'3 (0-0.9); MONOCYTES % (AUTO) 5.5 % (2-12); NEUTROPHILS # (AUTO) 5.4 X10'3 (1.8-7.7); NEUTROPHILS % (AUTO) 89.9 % (42-75); PLATELET COUNT 138 X10'3 (140-440); RED BLOOD COUNT 3.83 X10'6 (4.20-5.60); RED CELL DISTRIBUTION WIDTH 32.7 % (11.5-14.5)
[2017-10-09 04:05] LABS: INR 1.5 INR; PROTHROMBIN TIME 15.4 SECONDS (9.0-12.0)
[2017-10-09 04:10] LABS: ALANINE AMINOTRANSFERASE 10 U/L (12-78); ALBUMIN 1.5 G/DL (3.4-5.0); ALBUMIN/GLOBULIN RATIO 0.5 (1.1-1.5); ALKALINE PHOSPHATASE 56 IU/L (46-116); ANION GAP 11 (8-16); ASPARTATE AMINO TRANSFERASE 14 U/L (10-37); BILIRUBIN,TOTAL 0.5 MG/DL (0.1-1.0); BLOOD UREA NITROGEN 50 MG/DL (7-18); BUN/CREATININE RATIO 13.2 (6.6-38.0); CALCIUM 7.1 MG/DL (8.5-10.1); CHLORIDE 101 MMOL/L (99-107); CREATININE 3.79 MG/DL (0.40-0.90); GLUCOSE 88 MG/DL (70-104); MAGNESIUM 1.3 MG/DL (1.5-2.4); PHOSPHORUS 4.8 MG/DL (2.3-4.5); POTASSIUM 4.2 MMOL/L (3.5-5.1); SODIUM 137 MMOL/L (135-145); TOTAL CARBON DIOXIDE 24.8 MMOL/L (24-32); TOTAL PROTEIN 4.4 G/DL (6.4-8.2); VANCOMYCIN,RANDOM 17.4 UG/ML; eGFR 12 ML/MIN
[2017-10-09 06:37] LABS: ANISOCYTOSIS 3+; NUCLEATED RED BLOOD CELLS 1 /100WBC (0-0); PLATELET ESTIMATE DECREASED; POLYCHROMASIA FEW; TOTAL CELLS COUNTED 100
[2017-10-09 06:38] LABS: LARGE PLATELETS FEW
[2017-10-09] MEDS: lactobacillus rhamnosus 10,000 MMU CELLS/CAPSULE PO SCH (07:13)
[2017-10-09] MEDS: pantoprazole 40mg Tablet.DR PO SCH (07:13)
[2017-10-09] MEDS: K, MAG and/or Phos replacement - Verify level? MC SCH (07:13)
[2017-10-09] MEDS: carVEDilol 12.5mg tablet PO SCH (07:13)
[2017-10-09] MEDS: aspirin 81mg tablet.DR PO SCH (07:13)
[2017-10-09] MEDS: sodium bicarbonate (8.4%) inj. 50 MEQ in normal saline 1000ml 1,000 ML IV SCH (08:30)
[2017-10-09] MEDS ORDERED: gelatin sponge, absorbable (Gelfoam-100 compressed) sponge TP ONE (08:40)
[2017-10-09] MEDS ORDERED: gelatin sponge, absorbable (Gelfoam 100) sponge TP ONE (08:45)
[2017-10-09] MEDS ORDERED: DOBUTamine-DoBUTrex 500mg/D5W 250 ML IV SCH (09:30)
[2017-10-09] MEDS ORDERED: LORazepam 2 mg/ml vial IV PRN (10:25)
[2017-10-09] MEDS ORDERED: acetaminophen 325mg tablet PO PRN (10:25)
[2017-10-09] MEDS ORDERED: morphine 10mg/ml inj. IV PRN ×3 (10:25→10:55)
[2017-10-09 10:41] LABS: PARTIAL THROMBOPLASTIN TIME 37 SECONDS (22-32)
[2017-10-09] MEDS: LACTOSE-FREE FOOD 237ML (BOOST) PO SCH ×2 (13:00→18:00)
[2017-10-09] MEDS ORDERED: [UNRECOGNIZED DRUG - SUPPLY] MM ONE ×2 (14:35→14:40)
[2017-10-10 00:14] VITALS: BP 95/68
[2017-10-10 01:27] VITALS: BP 102/71
[2017-10-10 07:00] VITALS: BP 102/67
[2017-10-10] MEDS: LACTOSE-FREE FOOD 237ML (BOOST) PO SCH ×3 (08:00→18:00)
[2017-10-10] MEDS ORDERED: phytonadione inj. 5 MG in normal saline 100ml IV soln 99.5 ML IV ONE (11:10)
[2017-10-10 20:00] VITALS: BP 99/70
[2017-10-11 06:00] LABS: ALANINE AMINOTRANSFERASE 10 U/L (12-78); ALBUMIN 1.4 G/DL (3.4-5.0); ALBUMIN/GLOBULIN RATIO 0.5 (1.1-1.5); ALKALINE PHOSPHATASE 57 IU/L (46-116); ANION GAP 12 (8-16); ASPARTATE AMINO TRANSFERASE 19 U/L (10-37); BILIRUBIN,TOTAL 0.5 MG/DL (0.1-1.0); BLOOD UREA NITROGEN 47 MG/DL (7-18); BUN/CREATININE RATIO 15.8 (6.6-38.0); CALCIUM 7.3 MG/DL (8.5-10.1); CHLORIDE 104 MMOL/L (99-107); CREATININE 2.98 MG/DL (0.40-0.90); GLUCOSE 62 MG/DL (70-104); POTASSIUM 3.7 MMOL/L (3.5-5.1); SODIUM 141 MMOL/L (135-145); TOTAL CARBON DIOXIDE 25.5 MMOL/L (24-32); TOTAL PROTEIN 4.3 G/DL (6.4-8.2); eGFR 16 ML/MIN
[2017-10-11 06:56] VITALS: BP 99/65
[2017-10-11 08:00] VITALS: BP 99/65
[2017-10-11] MEDS: LACTOSE-FREE FOOD 237ML (BOOST) PO SCH ×3 (08:38→18:07)
[2017-10-11 19:00] VITALS: BP 103/65
[2017-10-12 07:46] VITALS: BP 104/65
[2017-10-12] MEDS: LACTOSE-FREE FOOD 237ML (BOOST) PO SCH ×3 (08:31→18:00)
[2017-10-12 08:36] VITALS: BP 104/65
[2017-10-12 19:00] VITALS: BP 89/57
[2017-10-13 06:57] VITALS: BP 95/65
[2017-10-13] MEDS: LACTOSE-FREE FOOD 237ML (BOOST) PO SCH ×2 (07:52→12:32)
[2017-10-13 08:00] VITALS: BP 95/65
== END 2017-10-13 13:22 | disposition hospice, home (50) | DRG 710 ==
LOC: ER 20:29 → ED HOLD 10-05 02:42 → EDBEDREQ 10-05 03:07 → CMPBEDREQ 10-05 03:08 → ORTHO 4S 10-05 04:05 → PCU 3S 10-08 14:10 → CICU 2S 10-08 17:30 → SUR 3N 10-10 01:00
PROVIDERS: ADMIT Internal Medicine; ATTEND Internal Medicine
PROC: 0Y6Y0Z0 Detachment at Left 5th Toe, Complete, Open Approach (ICD-10-PCS; principal; 2017-10-06 18:08)
PROC: 02HV33Z Insertion of Infusion Device into Superior Vena Cava, Percutaneous Approach (ICD-10-PCS; 2017-10-08)
PROC: B548ZZA Ultrasonography of Superior Vena Cava, Guidance (ICD-10-PCS; 2017-10-08)
DX: A41.9 Sepsis, unspecified organism (principal); I50.23 Acute on chronic systolic (congestive) heart failure; G93.40 Encephalopathy, unspecified; I96 Gangrene, not elsewhere classified; N17.9 Acute kidney failure, unspecified; E11.52 Type 2 diabetes mellitus with diabetic peripheral angiopathy with gangrene; I11.0 Hypertensive heart disease with heart failure; C55 Malignant neoplasm of uterus, part unspecified; L03.032 Cellulitis of left toe; I42.9 Cardiomyopathy, unspecified; E11.69 Type 2 diabetes mellitus with other specified complication; M86.8X7 Other osteomyelitis, ankle and foot; R33.9 Retention of urine, unspecified; F15.10 Other stimulant abuse, uncomplicated; F17.200 Nicotine dependence, unspecified, uncomplicated; I25.10 Atherosclerotic heart disease of native coronary artery without angina pectoris; R65.20 Severe sepsis without septic shock; Z51.5 Encounter for palliative care; Z66 Do not resuscitate; Z95.810 Presence of automatic (implantable) cardiac defibrillator; Z88.5 Allergy status to narcotic agent; Z88.8 Allergy status to other drugs, medicaments and biological substances; Z79.899 Other long term (current) drug therapy; Z79.82 Long term (current) use of aspirin
CPT/HCPCS: 36415; 36600; 70450; 71045; 73620; 80047; 80048; 80053; 80202; 80305; 80320; 81001; 82803; 82948; 83036; 83605; 83735; 83880; 84100; 84145; 85018; 85025; 85610; 85651; 85730; 86140; 87040; 87070; 87088; 93005; 96365; 96368; 97162; 97530; 99285; A4315; A4353; A6196; A6212; A6213; A6222; A6253; A6446; A6449; A7000; C1751; J0690; J1250; J1644; J1815; J2060; J2250; J2270; J2543; J3010; J3370; J3430; J3475; J3490; J7030